=== PATIENT | female | born 1960 | race Caucasian/White ===

== ENCOUNTER → 2017-02-08 | Outpatient (CLI) | payer BC, OTHER ==
[~2017-02-08] VITALS: Ht 162.6 cm; Wt 74.8 kg
[~2017-02-08] MED LIST: COLCHICINE0.6 MG PO; HYDROCHLOROTHIA25 M2 PO; HYDROCODON-ACE1 EAC8 PO; INDOMETHACIN 5050 M1 PO; LISINOPRIL20 MG PO; NEXIUM40 MG PO; ONDANSETRON HCL4 M2 PO; PREMARIN0.45 MG PO; SYNTHROID137 MCG PO; VERAPAMIL ER240 MG PO; VITAMIN D-32000 UNIT PO
--- NOTE | ~2017-02-08 | S ---
[facility] [address] [place] [address] SURGICAL PATH RPT PROCEDURE Name: NATHAN HONG Room #: REG ANGEL PerryMasood#: [id number] Admission: 02/08/17 Date of : 64 Discharge: Report #: [id number] Path Case #: [id number] PATHOLOGY REPORT COLLECTION DATE: 02/08/2017 RECEIVED DATE: 02/08/2017 SUBMITTING PHYS: Dr. Lionel Corral OTHER PHYS: SPECIMEN(S) RECEIVED: A.Small bowel bx R/O celiac B.Antrum bx R/O H. pylori C.Esophagus bx, (distal), R/O Amado's * * * * * * * * * * * * FINAL DIAGNOSIS: A. Small bowel mucosa, rule out celiac, endoscopic biopsy: - No significant diagnostic abnormalities present. B. Gastric mucosa, antrum, rule out H. pylori, endoscopic biopsy: - Mild reactive gastropathy. - Negative for intestinal metaplasia or atrophy. - Negative for Helicobacter pylori. C. Gastric cardia-type mucosa, distal esophagus, rule out Gomez's, endoscopic biopsy: - Mild chronic inflammation. - Negative for intestinal metaplasia or dysplasia. - Focal squamous mucosa showing reactive changes. (IUV:abundio; 02/09/2017) COMMENT: Well-controlled Helicobacter pylori immunohistochemical stain performed on block B1 - negative. PATHOLOGIST: Yudy Lara M.D. REPORT ELECTRONICALLY SIGNED BY: Yudy Lara M.D. DATE/TIME: 02/09/2017 15:40 * * * * * * * * * * * * GROSS PATHOLOGY: A. Received in formalin labeled "Nathan Hong, small bowel BX r/o celiac," are 2 segments of gregorio soft tissue measuring 0.7 x 0.2 x 0.3 cm in aggregate dimensions and ranging from 0.3 to 0.4 cm in maximum dimension. The specimen is submitted entirely in cassette A1. B. Received in formalin labeled "Nathan Hong, BX antrum r/o H. pylori," is a segment of gregorio soft tissue measuring 0.3 cm in maximum dimension. The specimen is submitted entirely in cassette B1. [facility] [place] [place] [address] SURGICAL PATH RPT PROCEDURE Name: NATHAN HONG Room #: REG [facility]#: [id number] Admission: 02/08/17 Date of : 64 Discharge: Report #: [id number] Path Case #: [id number] C. Received in formalin labeled "Nathan Hong, BX distal esophagus r/o Gomez's," is a segment of gregorio soft tissue measuring 0.4 cm in maximum dimension. The specimen is submitted entirely in cassette C1. (TSD; 02/08/2017) CLINICAL HISTORY: Pre-OP DX: GERD Post-OP DX: Hiatal hernia, gastritis, esophagitis INITIAL CPT CODE(S): A; 20188 B; 27712, 17924 C; 10013 Professional services performed by [facility] [address], [place] [address] Technical services performed by [facility] at [address] [place] [address], [address], [place] [address]. [facility] [address] [place] [address] PHONE: [phone] DIRECTOR: Cornelius Ramires M.D. * * * END OF REPORT * * *
== END | disposition home or self-care (01) ==
LOC: GI 08:15
DX: K29.70 Gastritis, unspecified, without bleeding (principal); K44.9 Diaphragmatic hernia without obstruction or gangrene; K31.7 Polyp of stomach and duodenum; K22.10 Ulcer of esophagus without bleeding
CPT/HCPCS: 62110; 62900